=== PATIENT | female | born 1935 | race Caucasian/White ===

== ENCOUNTER → 2016-07-30 13:29 | Outpatient (CLI) | payer MEDICARE, OTHER ==
[2015-11-06 10:15] VITALS: BMI 37.8
[~2016-07-30 13:29] MED LIST: ANASTROZOLE1 MG PO; BAYER CHEWABLE81 MG PO; BIOTIN5 MG; CHLORASEPTIC S180 ML MM; CO Q-10100 MG PO; CORDARONE200 MG PO; COUMADIN2 MG PO; FISH OIL 1,2001 CA1 PO; FISH OIL 1,2001 CAP PO; K-DUR20 MEQ PO; LASIX40 MG PO; LISINOPRIL5 MG PO; LOPRESSOR25 MG PO; MULTIPLE VITAMI1 TA1 PO; PRILOSEC20 MG PO; SYNTHROID150 MCG PO; TOPROL XL25 MG PO; TRIGLIDE160 MG PO; VITAMIN D2000 UNIT PO
== END | disposition home or self-care (01) ==
LOC: D.US 13:29
DX: R60.0 Localized edema (principal)

== ENCOUNTER → 2016-09-16 16:51 | Outpatient (CLI) | payer MEDICARE, OTHER ==
[2015-11-06 10:15] VITALS: BMI 37.8
== END | disposition home or self-care (01) ==
LOC: D.MAMMO 14:00
DX: Z85.3 Personal history of malignant neoplasm of breast (principal)

== ENCOUNTER → 2016-11-11 09:47 | Outpatient (CLI) | payer MEDICARE, OTHER ==
[~2016-11-11] VITALS: Ht 154.9 cm; Wt 87.7 kg
[2016-11-11 10:41] VITALS: BP 144/79; Ht 154.9 cm; Wt 87.7 kg
--- NOTE | 2016-11-11 12:14 | NUR ---
1207 IV ANTIBIOTICS HAVE COMPLETED. DENIES PROBLEMS, PRESSURE HELT FOR 5 MINUTES, DC INSTS. RELEASED IN WC.
== END | disposition home or self-care (01) ==
LOC: D.OPS 09:47
DX: Z95.2 Presence of prosthetic heart valve (principal)

== ENCOUNTER 2017-10-18 08:00 | Outpatient (CLI) | payer MEDICARE, OTHER ==
[2016-11-11 10:41] VITALS: BMI 36.5
== END 2017-10-18 09:00 | disposition home or self-care (01) ==
LOC: D.MAMMO 08:00
DX: Z85.3 Personal history of malignant neoplasm of breast (principal)

== ENCOUNTER 2017-11-10 08:46 | Outpatient (CLI) | payer MEDICARE, OTHER ==
[~2017-11-10] VITALS: Ht 154.9 cm; Wt 87.3 kg
[2017-11-10 10:10] VITALS: BP 145/63; Ht 154.9 cm; Wt 87.3 kg
== END 2017-11-10 11:40 | disposition home or self-care (01) ==
LOC: D.OPS 08:46
DX: Z95.2 Presence of prosthetic heart valve (principal); Z01.812 Encounter for preprocedural laboratory examination

== ENCOUNTER 2018-10-18 09:00 | Outpatient (CLI) | payer MEDICARE, OTHER ==
[2017-11-10 10:10] VITALS: BMI 36.3
== END 2018-10-18 09:30 | disposition home or self-care (01) ==
LOC: D.MAMMO 09:00
PROVIDERS: ATTEND Family Medicine
DX: Z85.3 Personal history of malignant neoplasm of breast (principal)

== ENCOUNTER 2018-11-09 08:18 | Outpatient (CLI) | payer MEDICARE, OTHER ==
[~2018-11-09] VITALS: Ht 154.9 cm; Wt 84.1 kg
[2018-11-09 10:12] VITALS: BP 142/70; Ht 154.9 cm; Wt 84.1 kg
--- NOTE | 2018-11-09 11:38 | NUR ---
PT LEFT UNIT AMBULATING AT 1135
== END 2018-11-09 11:35 | disposition home or self-care (01) ==
LOC: D.OPS 08:18
PROVIDERS: ATTEND Internal Medicine Cardiovascular Disease
DX: Z95.2 Presence of prosthetic heart valve (principal)

== ENCOUNTER → 2019-02-16 08:53 | Outpatient (CLI) | payer MEDICARE, OTHER ==
[2018-11-09 10:12] VITALS: BMI 35.0
--- NOTE | ~2019-02-16 | EC ---
PATIENT:REBA FLORES DATE OF SERVICE: 02/16/19 SEX: F MEDICAL RECORD: [id number] DATE OF : 33 LOCATION:[facility] AGE OF PATIENT: 84 ADMISSION DATE: 02/16/19 REFERRING PHYSICIAN: INTERPRETING PHYSICIAN: GERRY NICOLAS MD ECHOCARDIOGRAM REPORT ECHO CHARGES 4 ECHO COMPLETE Date: 02/16/19 CLINICAL DIAGNOSIS: CARDIOMYOPATHY/AVR H/O CAD ECHOCARDIOGRAPHIC MEASUREMENTS (adult normal given) AC root (d.<3.7cm) 2.4 cm LV Septum d (<1.2 cm> 1.2 cm Valve Excursion 0.9 cm LV Septum (systole) 1.5 cm Left Atria (s.<4.0cm> 4.3 cm LVPW d(<1.2cm) 1.1 cm RV (d.<2.3cm) 2.6 cm LVPW (sytole) 1.4 cm LV diastole(<5.6CM) 5.0 cm MV E-F(>70mm/sec) cm LV systole 3.2 cm LVOT Diameter 1.5 cm MV exc.(>10mm) cm Est.ejection fraction (50-75%) % DOPPLER: LVIT cm/sec A 146 cm/sec E 186 cm/sec LA cm/sec RVSP 46.0 mmHg LVOT 101 cm/sec AOP1/2T m/s Asc. Ao 227 cm/sec RVOT 66.0 cm/sec RA cm/sec PA 117 cm/sec AV Gradient Peak 21.0 mmHg AV Mean 11.0 mmHg AV Area 0.9 cm MV Gradient Peak 20.1 mmHg MV Mean 8.2 mmHg MV Area cm COMMENTS: OP - HC Hris Manager: 1 MISSY JIANGOE Medical Editor: 1 Dr. Nicolas TAPE# PACS Pericardial Effusion N DATE OF SERVICE: FINDINGS: 1. Left ventricular chamber size is mildly dilated. Left ventricular systolic function is moderately reduced at 30%. 2. Left atrium is enlarged at 4.3 cm. Right atrium and right ventricle chamber sizes are within normal limits. 3. 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 There is a 21-mm gradient across this tissue valve. ECHOCARDIOGRAM REPORT [id number] REBA FLORES 4. Doppler interrogation else cochran reveals trace mitral regurgitation, moderate tricuspid regurgitation, no other valvular insufficiency or stenosis. Pulmonary systolic pressure is estimated at 46 mmHg. 5. No evidence of pericardial effusion or left ventricular thrombus. TRANSINT:[id number] Voice Confirmation ID: [id number] DOCUMENT ID: [id number] GERRY NICOLAS MD CC: [id number] DICTATION DATE: 02/17/19 1358 BARNWORKER GROOM: 02/17/19 2215 DEP CLI 02/16/19 [place] [id number] [place] [id number]
== END | disposition home or self-care (01) ==
LOC: D.HCCECHO 08:53
PROVIDERS: ATTEND Internal Medicine Interventional Cardiology
DX: I25.10 Atherosclerotic heart disease of native coronary artery without angina pectoris (principal)

== ENCOUNTER 2019-11-08 07:53 | Outpatient (CLI) | payer MEDICARE, OTHER ==
[~2019-11-08] VITALS: Ht 157.5 cm; Wt 79.1 kg
[2019-11-08 08:26] VITALS: Ht 157.5 cm; Wt 79.1 kg
--- NOTE | 2019-11-08 11:02 | NUR ---
1105 IV REMOVED, PRESSURE HELD AND PT VOIDED PRIOR TO D/C
== END 2019-11-08 11:10 | disposition home or self-care (01) ==
LOC: D.OPS 07:53
PROVIDERS: ATTEND Internal Medicine Cardiovascular Disease
DX: Z95.2 Presence of prosthetic heart valve (principal); Z95.4 Presence of other heart-valve replacement

== ENCOUNTER 2019-12-12 18:00 | Outpatient (CLI) | payer MEDICARE, OTHER ==
[2019-11-08 08:26] VITALS: BMI 31.9
== END 2019-12-12 23:59 | disposition home or self-care (01) ==
LOC: D.MAMMO 18:00
PROVIDERS: ATTEND Family Medicine
DX: Z12.31 Encounter for screening mammogram for malignant neoplasm of breast (principal)